=== PATIENT | male | born 1970 | race American Indian/Alaskan Native ===

== ENCOUNTER 2016-11-24 08:09 | Emergency (ER) | payer SELFPAY ==
[2016-11-24 09:02] LABS: Basophils % (Auto) 0.3 % (0.0-1.8); Eosinophils % (Auto) 1.7 % (0.0-4.3); Hematocrit 47.3 % (35.5-45.6); Mean Corpuscular HGB Conc 34 % (32-34); Mean Corpuscular Hemoglobin 33 pg (28-32); Mean Corpuscular Volume 98 fl (84-94); Platelet Count 204 K/mm3 (140-440); Red Blood Count 4.85 M/mm3 (3.65-5.03); Red Cell Distribution Width 13.7 % (13.2-15.2)
[2016-11-24 09:10] LABS: Bacteria,Urine 1+ /HPF (Negative); Bilirubin,Urine NEG (Negative); Blood,Urine MOD (Negative); Ketones,Urine NEG (Negative); Leukocyte Esterase,Urine NEG (Negative); Mucus,Urine 3+ /HPF; Nitrite,Urine NEG (Negative)
[2016-11-24 09:20] LABS: Alanine Aminotransferase 22 units/L (7-56); Albumin 4.3 g/dL (3.9-5); Albumin/Globulin Ratio 1.4 %; Alkaline Phosphatase 72 units/L (35-129); Anion Gap 16 mmol/L; BUN/Creatinine Ratio 16; Blood Urea Nitrogen 18 mg/dL (9-20); Calcium 9.3 mg/dL (8.4-10.2); Carbon Dioxide 28 mmol/L (22-30); Chloride 102.2 mmol/L (98-107); Glucose 103 mg/dL (75-100); Lipase 14 units/L (13-60); Potassium 4.1 mmol/L (3.6-5.0); Sodium 142 mmol/L (137-145); Total Protein 7.4 g/dL (6.3-8.2)
[2016-11-24 11:28] VITALS: BP 116/72
[2016-11-24] MEDS ORDERED: ZOFRAN ODT PO ONE (13:36)
--- NOTE | 2016-11-24 13:41 | Emergency Department Report ---
HPI - General Chief Complaint: Pain General Time Seen by Provider: 11/24/16 13:15 - HPI HPI: 46-year-old male presents today complaining of burning in urine 3 days. Patient is also concerned of 2 lumps in his inguinal area 3 days. Denies history of similar symptoms. Denies blood in urine. Denies increased urinary frequency or urgency, penile discharge. Positive for nausea and vomiting. Denies any recent heavy lifting. Denies fever, chills, chest pain, shortness of breath, abdominal pain. ED Past Medical Hx - Past Medical History Previous Medical History?: No Hx CVA: No Hx Heart Attack/AMI: No Hx Congestive Heart Failure: No - Surgical History Past Surgical History?: No - Social History Smoking Status: Current Every Day Smoker - Medications Home Medications: Home Medications Medication Instructions Recorded Confirmed Last Taken Type Ibuprofen [Motrin 800 MG tab] 800 mg PO TID PRN #20 tablet 10/26/13 Unknown Rx Ciprofloxacin HCl [Cipro] 250 mg PO BID #6 tablet 11/24/16 Unknown Rx Ondansetron [Zofran Odt] 4 mg PO Q6H #20 tab.rapdis 11/24/16 Unknown Rx Phenazopyridine [Pyridium] 100 mg PO TID #6 tab 11/24/16 Unknown Rx ED Review of Systems ROS: Stated complaint: ABDOMINAL PAIN, VOMITING Other details as noted in HPI Constitutional: denies: chills, fever, malaise Eyes: denies: eye pain ENT: denies: ear pain, throat pain, congestion Respiratory: denies: cough, shortness of breath, wheezing Cardiovascular: denies: chest pain, palpitations Endocrine: no symptoms reported Gastrointestinal: nausea, vomiting. denies: abdominal pain Genitourinary: dysuria. denies: urgency, frequency, hematuria, discharge, testicular pain, testicular mass Musculoskeletal: denies: back pain Skin: denies: rash, lesions Neurological: denies: headache, weakness Physical Exam - Physical Exam Vital Signs: Vital Signs 11/24/16 11/24/16 08:36 11:27 Temperature 98.5 F Pulse Rate 64 60 Respiratory 18 16 Rate Blood Pressure 115/59 Blood Pressure 116/72 [Left] O2 Sat by Pulse 99 100 Oximetry Physical Exam: GENERAL: The patient is well-developed and well-nourished. Patient is in NAD. HEAD: Normocephalic. Atraumatic. EYES: Extraocular motions are intact, PERRL. EARS: External auditory canals and tympanic membranes clear; hearing grossly intact. NOSE: Normal nasal mucosa with no nasal discharge. THROAT: No erythema, swelling or exudates. Teeth and gingiva in good general condition. NECK: Supple, nontender, without lymphadenopathy. No meningitic signs are noted. CHEST/LUNGS: Clear to auscultation throughout. HEART/CARDIOVASCULAR: Regular rate and rhythm. No murmurs, rubs or gallops. ABDOMEN: Abdomen is soft, nontender. Bowel sounds normoactive. No guarding or rebound tenderness. No CVA tenderness to palpation. MALE GENITAL: No rash or lesions noted. No penile discharge. No testicular mass or tenderness to palpation. Enlarged inguinal lymph nodes palpated, mildly tender to palpation. EXTREMITIES: No cyanosis, clubbing or edema. Peripheral pulses intact. Capillary refill less than 2 seconds. NEURO: Alert and oriented x 3. Normal gait. ED Course Vital Signs 11/24/16 11/24/16 08:36 11:27 Temperature 98.5 F Pulse Rate 64 60 Respiratory 18 16 Rate Blood Pressure 115/59 Blood Pressure 116/72 [Left] O2 Sat by Pulse 99 100 Oximetry ED Medical Decision Making - Lab Data Result diagrams: 11/24/16 08:52 11/24/16 08:52 Vital Signs 11/24/16 11/24/16 08:36 11:27 Temperature 98.5 F Pulse Rate 64 60 Respiratory 18 16 Rate Blood Pressure 115/59 Blood Pressure 116/72 [Left] O2 Sat by Pulse 99 100 Oximetry Lab Results 11/24/16 11/24/16 11/24/16 Range/Units 08:52 08:52 08:53 WBC 6.0 (4.5-11.0) K/mm3 RBC 4.85 (3.65-5.03) M/mm3 Hgb 16.0 H (11.8-15.2) gm/dl Hct 47.3 H (35.5-45.6) % MCV 98 H (84-94) fl MCH 33 H (28-32) pg MCHC 34 (32-34) % RDW 13.7 (13.2-15.2) % Plt Count 204 (140-440) K/mm3 Lymph % (Auto) 22.0 (13.4-35.0) % [place] % (Auto) 15.3 H (0.0-7.3) % Eos % (Auto) 1.7 (0.0-4.3) % Baso % (Auto) 0.3 (0.0-1.8) % Lymph # 1.3 (1.2-5.4) K/mm3 [place] # 0.9 H (0.0-0.8) K/mm3 Eos # 0.1 (0.0-0.4) K/mm3 Baso # 0.0 (0.0-0.1) K/mm3 Seg Neutrophils % 60.7 (40.0-70.0) % Seg Neutrophils # 3.6 (1.8-7.7) K/mm3 Sodium 142 (137-145) mmol/L Potassium 4.1 (3.6-5.0) mmol/L Chloride 102.2 (98-107) mmol/L Carbon Dioxide 28 (22-30) mmol/L Anion Gap 16 mmol/L BUN 18 (9-20) mg/dL Creatinine 1.1 (0.8-1.5) mg/dL Estimated GFR > 60 ml/min BUN/Creatinine Ratio 16 % Glucose 103 H (75-100) mg/dL Calcium 9.3 (8.4-10.2) mg/dL Total Bilirubin 0.60 (0.1-1.2) mg/dL AST 22 (5-40) units/L ALT 22 (7-56) units/L Alkaline Phosphatase 72 (35-129) units/L Total Protein 7.4 (6.3-8.2) g/dL Albumin 4.3 (3.9-5) g/dL Albumin/Globulin Ratio 1.4 % Lipase 14 (13-60) units/L Urine Color Yellow (Yellow) Urine Turbidity Clear (Clear) Urine pH 5.0 (5.0-7.0) Ur Specific [place] 1.031 H (1.003-1.030) Urine Protein 30 mg/dl (Negative) mg/dL Urine Glucose (UA) Neg (Negative) mg/dL Urine Ketones Neg (Negative) mg/dL Urine Blood Mod (Negative) Urine Nitrite Neg (Negative) Urine Bilirubin Neg (Negative) Urine Urobilinogen 2.0 (<2.0) mg/dL Ur Leukocyte Esterase Neg (Negative) Urine WBC (Auto) 19.0 H (0.0-6.0) /HPF Urine RBC (Auto) 10.0 (0.0-6.0) /HPF U Epithel Cells (Auto) 2.0 (0-13.0) /HPF Urine Bacteria (Auto) 1+ (Negative) /HPF Urine Mucus 3+ /HPF - Medical Decision Making 46-year-old male presents today complaining of dysuria and inflamed inguinal lymph nodes. His urinalysis reveals elevated urine WBC and moderate occult blood. Patient is in no acute distress at this time. He will be discharged home and is encouraged to follow up with a primary care provider. He will be sent home on ciprofloxacin, Pyridium and Zofran and is encouraged to return to the emergency room for any worsening symptoms. Critical care attestation.: If time is entered above; I have spent that time in minutes in the direct care of this critically ill patient, excluding procedure time. ED Disposition Clinical Impression: Lymphadenopathy, inguinal UTI (urinary tract infection) Qualifiers: Urinary tract infection type: acute cystitis Hematuria presence: with hematuria Qualified Code(s): N30.01 - Acute cystitis with hematuria Disposition: - TO HOME OR SELFCARE Is pt being admited?: No Does the pt Need Aspirin: No Condition: Stable Instructions: Urinary Tract Infection in Men (ED) Additional Instructions: Follow-up with primary care provider. Return to the emergency department if symptoms worsen. Prescriptions: Ciprofloxacin HCl [Cipro] 250 mg PO BID #6 tablet Ondansetron [Zofran Odt] 4 mg PO Q6H #20 tab.meaghan Phenazopyridine [Pyridium] 100 mg PO TID #6 tab Referrals: PRIMARY CARE, [Primary Care Provider] - 3-5 Days [facility] [Outside] - 3-5 Days Forms: Work/School Release Form(ED) Time of Disposition: 13:45
== END 2016-11-24 13:55 | disposition home or self-care (01) ==
LOC: ED 08:09
DX: R59.0 Localized enlarged lymph nodes (principal); N30.01 Acute cystitis with hematuria; F17.200 Nicotine dependence, unspecified, uncomplicated
CPT/HCPCS: 36415; 80053; 81001; 83690; 85025; 99283; Q0162

== ENCOUNTER 2018-06-08 09:04 | Outpatient (CLI) | payer OTHER ==
--- NOTE | 2018-06-08 10:04 | XRay Report ---
AP AND LATERAL LUMBOSACRAL SPINE: History: Back pain. There is normal height and alignment of lumbar vertebral bodies. Posterior elements are in appropriate relationship. There is mild to moderate diffuse facet arthropathy which is most pronounced at L3-4. Mild degenerative disc disease at L4-5 and L5-S1. No evidence for fracture, subluxation or bone lesion. IMPRESSION: Mild lumbar spondylosis as described.
== END 2018-06-08 09:05 | disposition home or self-care (01) ==
LOC: XRAY 09:04
PROVIDERS: ATTEND Internal Medicine
DX: M47.816 Spondylosis without myelopathy or radiculopathy, lumbar region (principal); M51.37 Other intervertebral disc degeneration, lumbosacral region
CPT/HCPCS: 72100

== ENCOUNTER 2018-08-06 04:14 | Emergency (ER) | payer OTHER ==
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
[2018-08-06] MEDS ORDERED: ULTRAM PO ONE (05:50)
--- NOTE | 2018-08-06 06:30 | XRay Report ---
PROCEDURE: XR SPINE CERVICAL 2-3V TECHNIQUE: AP lateral and open-mouth views of cervical spine were obtained. HISTORY: neck pain COMPARISONS: None FINDINGS: The disc heights and alignment appear normal. The prevertebral soft tissues and C1-C2 articulation [place] pear intact. IMPRESSION: Within normal limits.. This document is electronically signed by Gerald Gonzales MD., August 06 2018 06:28:31 AM ET
--- NOTE | 2018-08-06 06:31 | XRay Report ---
PROCEDURE: XR SPINE LUMBOSACRAL 2-3V TECHNIQUE: 3 views of the lumbar spine were obtained. HISTORY: low back pain COMPARISONS: None FINDINGS: The disc heights and alignment appear normal. There is endplate spurring at several levels. The SI lexie ints appear normal. The soft tissues are well-maintained. IMPRESSION: Mild endplate spurring at several levels. Otherwise unremarkable exam.. This document is electronically signed by Gerald Gonzales MD., August 06 2018 06:29:23 AM ET
[2018-08-06 06:59] VITALS: BP 108/70
== END 2018-08-06 06:58 | disposition home or self-care (01) ==
LOC: ED 04:14
DX: S16.1XXA Strain of muscle, fascia and tendon at neck level, initial encounter (principal); S39.012A Strain of muscle, fascia and tendon of lower back, initial encounter; F17.200 Nicotine dependence, unspecified, uncomplicated; V49.59XA Passenger injured in collision with other motor vehicles in traffic accident, initial encounter; Y93.89 Activity, other specified; Y92.410 Unspecified street and highway as the place of occurrence of the external cause; Y99.8 Other external cause status
CPT/HCPCS: 72040; 72100

== ENCOUNTER 2018-12-24 15:11 | Emergency (ER) | payer OTHER ==
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
== END 2018-12-24 19:50 | disposition home or self-care (01) ==
LOC: ED 15:11
DX: S09.90XA Unspecified injury of head, initial encounter (principal); R07.81 Pleurodynia; F17.200 Nicotine dependence, unspecified, uncomplicated; Z79.899 Other long term (current) drug therapy; V49.59XA Passenger injured in collision with other motor vehicles in traffic accident, initial encounter; Y93.89 Activity, other specified; Y92.410 Unspecified street and highway as the place of occurrence of the external cause; Y99.8 Other external cause status
CPT/HCPCS: 70450; 72125